=== PATIENT | male | born 1965 | race Caucasian/White ===

== ENCOUNTER 2024-03-19 21:34 | Emergency (ER) | payer BC, SELFPAY ==
[2024-03-19 21:35] VITALS: BP 136/81
[2024-03-19 23:26] VITALS: BMI 35.8
--- NOTE | 2024-03-19 23:34 | ED.GENMED ---
History of Present Illness
General
Chief Complaint: Head Injury
Source: patient
Exam Limitations: none
Time Seen by Provider: 03/19/24 23:19
Nursing documentation reviewed up to this point in time: agreed with
History of Present Illness
History of Present Illness:
59-year-old male presenting to the emergency department today with concerns of a bat flying into the right side of his posterior head. Has mild discomfort to the area denies additional concerns does not appreciate any breaks in the skin. No
previous rabies vaccinations in the past.
Past History
Past History
ED Past Medical History: Other (Lyme)
ED Past Surgical History: None
Social History
Tobacco: Non-smoker
Drug: None
Review of Systems
Review of Systems
Allergies reviewed?: Yes
All Other Systems: ROS reviewed and negative except as documented in HPI and ROS
Phy Exam
Physical Exam
Physical Exam:
GENERAL: Alert , in no apparent distress
EYE: pupils equal and reactive
NECK: Supple, no significant adenopathy.
ENT: o/p clr, mmm.
CARDIAC: Regular rate and rhythm .
LUNGS: Clear breath sounds bilaterally, no acute respiratory distress, no wheezes/rales/rhonchi
ABDOMEN: Soft, without focal tenderness, no r/g, no cvat
NEUROLOGICAL: Alert and oriented, no focal neuro deficits
SKIN: Warm and dry, skin intact.
MUSCULOSKELETAL: No edema, well perfused.
PSYCH: Normal and appropriate interaction.
Course
Orders/Labs/Results
Orders:
Orders
03/19/24 23:33
Rabies Immune Globulin/Pf [HyperRAB] 2,198 unit IM NOW STA
Rabies Vaccine (Pcec)/Pf [Rabavert Rabies Vacc W-Diluent] 2.5 unit IM .ONCE ONE
Vital Signs
Initial and Last Documented VS:
Initial Vital Signs
Temp Pulse Resp BP Pulse Ox
98.9 F 85 18 136/81 98
03/19/24 21:35 03/19/24 21:35 03/19/24 21:35 03/19/24 21:35 03/19/24 21:35
Last Documented Vital Signs
Temp Pulse Resp BP Pulse Ox
98.9 F 85 18 136/81 98
03/19/24 21:35 03/19/24 21:35 03/19/24 21:35 03/19/24 21:35 03/19/24 21:35
MDM/Problems Addressed
MDM/Problems Addressed:
59-year-old male presenting to the emergency department after bat flew into the right side of his posterior head. No visible signs of trauma to the head. Plan to treat for potential rabies exposure otherwise no obvious breaks in the skin requiring
tetanus shot or antibiotic prophylaxis. Stable for discharge return precautions given.
*Critical Care Note
Total Time (30-74mins, 75-104mins- exclusive of procedures): Not Applicable
ED Attending Note
-
Portions of this chart may have been created with voice recognition software.� Occasional wrong word or��sound alike� substitutions may have occurred due to the inherent limitations of voice recognition software.
Discharge Plan
Departure
Patient Disposition: Home (Routine Discharge)
Date of Disposition: 03/19/24
Time of Disposition: 23:35
Patient with high blood pressure during this ER visit?: No
Condition: Good
Covid-19: Not Applicable
Discharge Problem:
Exposure to bat without known bite
Instructions: Rabies (DC)
Prescriptions:
New
RabAvert (PF) 2.5 unit Suspension For Reconstitution
1 ml IM . DIRECTED Qty: 3 0RF
Rx Instructions:
See Rabies Vaccine Post Exposure Prophylaxis Instruction Sheet for Dosing Instructions
No Action
amoxicillin 500 MG capsule
500 mg PO TID Qty: 60 0RF
ondansetron 4 MG tablet,disintegrating
4 mg PO TIDPRN PRN (Reason: nausea) Qty: 12 0RF
Stand Alone Forms: Rabies Vaccine Post Exp Dosing
Activity Restrictions/Additional Instructions:
You came to the emergency department today with concerns of a bat exposure. You were started on the rabies prophylaxis. Please follow-up for subsequent vaccines at the infusion center at days 3, 7 and 14. Return to the emergency department for
any worsening, new or concerning symptoms.
Interventions
Interventions:
*Risk Screen - Suicide Last Done: 03/19/24 21:35
*General Assessment Last Done: 03/19/24 21:35
*Neglect/Abuse Screening Last Done: 03/19/24 21:35
ED- Neurological Assessment Last Done: 03/19/24 23:27
ED-Skin Assessment Last Done: 03/19/24 23:27
Discharge Date and Time
Print Language: CHINESE
[2024-03-20] MEDS: HyperRAB 2100 UNIT IM (00:18)
[2024-03-20] MEDS: RABAVERT RABIES VACC W-DILUENT 2.5 UNIT IM (00:18)
[2024-03-20 00:26] VITALS: BP 125/73
== END 2024-03-20 00:32 | disposition home or self-care (01) ==
LOC: EMR 21:34
PROVIDERS: EMERGENCY PHYSICIAN Student in an Organized Health Care Education/Training Program; FAMILY PHYSICIAN Family Medicine
DX: Z20.3 Contact with and (suspected) exposure to rabies (principal); Z23 Encounter for immunization; Z29.14 Encounter for prophylactic rabies immune globulin
CPT/HCPCS: 99282; 90471; 96372; 90375; 90675

== ENCOUNTER 2024-04-01 15:04 | Outpatient (RCR) | payer BC, SELFPAY ==
[2024-03-22 14:33] VITALS: BP 124/74
[2024-03-22] MEDS: RABAVERT RABIES VACC W-DILUENT 2.5 UNIT IM (14:44)
[2024-03-25 14:38] VITALS: BP 130/68
[2024-03-25] MEDS: RABAVERT RABIES VACC W-DILUENT 2.5 UNIT IM (14:46)
[2024-04-01 15:10] VITALS: BP 146/78
[2024-04-01] MEDS: RABAVERT RABIES VACC W-DILUENT 2.5 UNIT IM (15:17)
== END 2024-04-04 07:56 | disposition home or self-care (01) ==
LOC: OID 15:04
PROVIDERS: ATTENDING PHYSICIAN Physician Assistant; FAMILY PHYSICIAN Family Medicine
DX: Z23 Encounter for immunization; Z20.3 Contact with and (suspected) exposure to rabies
CPT/HCPCS: 90471; 90675

== ENCOUNTER → 2025-06-21 08:08 | Outpatient (REF) | payer BC, SELFPAY | LOC: REG 08:08 | PROVIDERS: ATTENDING PHYSICIAN Physician Assistant Medical | DX: S69.91XA Unspecified injury of right wrist, hand and finger(s), initial encounter (principal) | CPT/HCPCS: 73110; 73130 ==